=== PATIENT | male | born 1935 | race Caucasian/White ===

== ENCOUNTER 2023-08-17 09:35 | Emergency (ER) | payer MEDICARE, SELFPAY ==
[2023-08-17] VITALS (9 sets, daily range): BP systolic 178–184; BP diastolic 70–85; PULSE 50–64; RESP 13–22; TEMP 37; O2SAT 95–99; BMI 23.1
--- NOTE | 2023-08-17 09:49 | EKG_ITS ---
[address] [address] [address] [address] Test Date: 2023-08-17 Pat Name: Alden Sagastume Department: [facility] Room: Gender: Male [employer]er [employer]sembler: RIDGE : 1935 Requested By: Order Number: [id number] Reading MD: Sam Hylton MD Measurements Intervals [place] Rate: 55 P: 27 NH: 178 QRS: -2 QRSD: 76 T: 51 QT: 442 QTc: 422 Interpretive Statements Sinus bradycardia Electronically Signed On 08-18-2023 7:24:52 PDT by Sam Hylton MD
[2023-08-17] MEDS: ONDANSETRON 4 MG/2 ML INJ IV (10:45)
[2023-08-17 11:00] LABS: Add Manual Diff / Slide Review NO; Basophils Absolute Auto 0 /uL (0-100); Basophils Percent Auto 0.4 % (0-2); Eosinophils Absolute Auto 0 /uL (0-450); Eosinophils Percent Auto 0.5 % (2-4); Hemoglobin 12.6 g/dL (13.5-17.5); Lymphocytes Absolute Auto 600 /uL (1100-4500); Lymphocytes Percent Auto 10.1 % (25-40); Mean Corpuscular Hemoglobin 34.8 PG (26-34); Mean Corpuscular Volume 102.2 fL (80-100); Monocytes Absolute Auto 400 /uL (0-900); Monocytes Percent Auto 5.9 % (3-14); Neutrophils Absolute Auto 5300 /uL (1500-7000); Neutrophils Percent Auto 83.1 % (50-75); Platelet Count 242 X10^3/uL (150-400); Red Blood Cell Count 3.62 X10^6/uL (4.5-5.9); Red Cell Distribution Width 13.7 % (11.6-14.8); White Blood Cell Count 6.3 X10^3/uL (4.5-11.0)
[2023-08-17 11:09] LABS: Alanine Aminotransferase 12 IU/L (<50); Albumin 4.5 g/dL (3.5-5.0); Albumin Globulin Ratio 1.1 (1.0-2.8); Alkaline Phosphatase 60 U/L (38-126); Aspartate Aminotransferase 25 IU/L (17-59); Bilirubin Total 0.7 mg/dL (0.2-1.3); Blood Urea Nitrogen 13 mg/dL (9-20); Calcium 8.6 mg/dL (8.4-10.2); Carbon Dioxide 26 mmol/L (22-32); Chloride 105 mmol/L (98-107); Estimated Glomerular Filt Rate 53 mL/min (>60); Glucose 107 mg/dL (80-110); HEMOLYSIS < 15 (0-50); Lipase 105 U/L (23-300); Potassium 3.9 mmol/L (3.4-5.1); Sodium 139 mmol/L (137-145); Total Protein 8.5 g/dL (6.3-8.2)
--- NOTE | 2023-08-17 11:11 | ED.ABDPAIN ---
HPI - Abdominal Pain General Chief Complaint: Abdominal Pain Stated Complaint: vomiting, poss dehydration, sent by [facility] Time Seen by Provider: 08/17/23 11:10 Source: patient Mode of arrival: Ambulatory History of Present Illness HPI narrative: Patient is a 87-year-old male history of prostate cancer on Lupron every 3 months chronic kidney disease presenting today with nausea vomiting diarrhea. reports that he has had some abdominal cramping and vomiting off and on this morning he had uncontrolled vomiting unable to keep anything down. He also had 2 episodes of diarrhea. Nonbloody. He reports some abdominal discomfort but not significant pain. He reports he feels a little dizzy and lightheaded when he stands up. He feels like he is dehydrated. He denies any chest pain or palpitations. Related Data Previous Rx's Medication Instructions Recorded ondansetron 4 mg disintegrating 4 mg PO Q8H PRN nausea and 08/17/23 tablet vomiting #10 tabs Allergies Allergy/AdvReac Type Severity Reaction Status Date / Time Penicillins Allergy Unknown Verified 08/17/23 09:49 Patient History Medical History (Updated 08/17/23 @ 12:28 by Yamel Vazquez DO) Hypothyroidism (acquired) Macrocytic anemia Chronic kidney disease Hypertension Prostate cancer Social History Smoking Status: Never smoker Smoking Status: Never smoker alcohol intake frequency: 0-2 drinks per day Substance Use Type: does not use Exam Initial Vital Signs Initial Vital Signs: Vital Signs Pulse Rate 63 08/17/23 09:45 Blood Pressure 184/85 H 08/17/23 09:45 Pulse Oximetry 99 08/17/23 09:45 GENERAL: Alert week 87-year-old male and in no acute distress. HEENT: Head atraumatic,EOMI, pupils reactive, face symmetric, moist mucous membranes CARDIOVASCULAR: Regular rate and rhythm without murmurs, rubs or gallops. RESPIRATORY: Breath sounds equal bilaterally, no wheezes rales or rhonchi. ABDOMEN: Soft, nontender. No distention no scar Normoactive bowel sounds all 4 quadrants. No guarding or rebound. EXTREMITIES: Normal range of motion, no clubbing or edema. Neurovascularly intact NEUROLOGICAL: Alert and oriented x4.Normal gait and speech. SKIN: Warm, dry, no laceration, no petechiae, no rashes or lesions. Course Orders Ordered: ED Orders 08/17/23 10:35 Complete Blood Count AUTO DIFF Stat Comprehensive Metabolic Panel Stat Lipase Stat 08/17/23 11:12 CT abdomen pelvis w con Stat Discontinued Medications Sodium Chloride (Normal Saline 0.9%) 1,000 mls @ 1,000 mls/hr IV BOLUS ONE Stop: 08/17/23 12:09 Last Infusion: 08/17/23 12:43 Dose: Infused Documented By: Admin: 08/17/23 11:37 Dose: 1,000 mls/hr Documented By: MARK Ondansetron HCl (Ondansetron 4 Mg/2 Ml Inj) 4 mg IV NOW PRN PRN Reason: Nausea And Vomiting Last Admin: 08/17/23 10:45 Dose: 4 mg Documented By: VANCE Ondansetron HCl (Ondansetron 4 Mg Odt) 4 mg PO NOW PRN PRN Reason: Nausea And Vomiting Vital Signs Vital signs: Vital Signs - 8 hr 08/17/23 11:29 08/17/23 11:29 08/17/23 11:30 Pulse Rate 61 57 L Respiratory Rate 16 13 Blood Pressure 184/74 H Pulse Oximetry 98 98 08/17/23 11:31 08/17/23 11:31 08/17/23 12:00 Pulse Rate 57 L 55 L Respiratory Rate 17 22 Blood Pressure 178/75 H Pulse Oximetry 97 95 08/17/23 12:00 Pulse Rate Respiratory Rate Blood Pressure 178/70 H Pulse Oximetry MDM - Abdominal Pain Lab Data 08/17/23 10:35 08/17/23 10:35 Labs: Lab Results 08/17/23 Range/Units 10:35 WBC 6.3 (4.5-11.0) X10^3/uL RBC 3.62 L (4.5-5.9) X10^6/uL Hgb 12.6 L (13.5-17.5) g/dL Hct 37.0 L (41-53) % MCV 102.2 H (80-100) fL MCH 34.8 H (26-34) PG MCHC 34.0 (30-36) % RDW 13.7 (11.6-14.8) % Plt Count 242 (150-400) X10^3/uL Neut % (Auto) 83.1 H (50-75) % Lymph % (Auto) 10.1 L (25-40) % [place] % (Auto) 5.9 (3-14) % Eos % (Auto) 0.5 L (2-4) % Baso % (Auto) 0.4 (0-2) % Neut # (Auto) 5300 (8403-4786) /uL Lymph # (Auto) 600 L (5007-7075) /uL [place] # (Auto) 400 (0-900) /uL Eos # (Auto) 0 (0-450) /uL Baso # (Auto) 0 (0-100) /uL Sodium 139 (137-145) mmol/L Potassium 3.9 (3.4-5.1) mmol/L Chloride 105 (98-107) mmol/L Carbon Dioxide 26 (22-32) mmol/L BUN 13 (9-20) mg/dL Creatinine 1.30 H (0.66-1.25) mg/dL Estimated GFR 53 L (>60) mL/min BUN/Creatinine Ratio 10.0 (6-22) Glucose 107 (80-110) mg/dL Calcium 8.6 (8.4-10.2) mg/dL Total Bilirubin 0.7 (0.2-1.3) mg/dL AST 25 (17-59) IU/L ALT 12 (<50) IU/L Alkaline Phosphatase 60 (38-126) U/L Total Protein 8.5 H (6.3-8.2) g/dL Albumin 4.5 (3.5-5.0) g/dL Globulin 4.0 (1.7-4.1) g/dL Albumin/Globulin Ratio 1.1 (1.0-2.8) Lipase 105 (23-300) U/L Imaging Data CT scan - abdomen/pelvis: Radiologist's Impression: PROCEDURE: CT ABDOMEN PELVIS W CON INDICATIONS: nausea vomiting hx prostate cancer TECHNIQUE: After the administration of intravenous contrast, axial sections acquired from the lung bases to the pubic symphysis. Coronal and sagittal reformats were performed. For radiation dose reduction, the following was used: automated exposure control, adjustment of mA and/or kV according to patient size. COMPARISON: None. FINDINGS: Image quality: Diagnostic. Lower Chest: No significant findings. ABDOMEN: Liver: No solid mass. Gallbladder: No radiopaque gallstones or wall thickening. Biliary ducts: No biliary dilation. Pancreas: No ductal dilation. Spleen: Size is within normal limits. Adrenal Glands: No adrenal nodules. Kidneys and Ureters: No hydronephrosis. No solid mass. No complex renal cystic lesion which requires follow up. Stomach and Bowel: Colon is largely decompressed. Question mild diffuse wall edema. Question acute colitis. Extensive sigmoid diverticulosis and diffuse colonic diverticulosis without evidence of acute diverticulitis. No dilated loops. Peritoneum: No abnormal intraperitoneal fluid. No free air. Ventral Wall: No significant ventral hernia. Abdominal Nodes: No retroperitoneal or mesenteric adenopathy by size criteria. Vessels: Aorta and inferior vena cava are normal in size. PELVIS: Pelvic Organs: Mild enlargement of the prostate.. Bladder: Mild diffuse bladder wall thickening. Pelvic Nodes: No enlarged lymph nodes. Miscellaneous: No inguinal hernias are seen. Bones: No aggressive osseous abnormality. IMPRESSION: 1. Colon is decompressed. Question mild colitis. Consider infectious etiology. 2. Extensive diverticulosis without evidence of acute diverticulitis. 3. Mildly enlarged prostate. 4. Mild bladder wall thickening. Dictated by: Jason Spencer M.D. on 08/17/2023 at 11:47 Approved by: Jason Spencer M.D. on 08/17/2023 at 11:51 ECG Data Interpretation: Normal sinus rhythm rate 55 OK interval 178 QRS 76 QTC [address] changes MDM Narrative Medical decision making narrative: Patient 87-year-old male presenting today with nausea vomiting diarrhea. It has been going on for about a week. This morning he was unable to keep anything down due to excessive vomiting. He is some mild cramping but no significant pain. Not an acute abdomen on exam. Blood work has been reviewed he has a mild AMANDA with a creatinine of 1.3 but baseline is unknown. He has no leukocytosis electrolyte abnormality or other significant changes WBC 6.3 hemoglobin 12.6 hematocrit 37.[address] does show mild colitis Patient no longer feeling dizzy and lightheaded he is tolerating oral fluids. Feels ready and able to go home. He ambulated in the ED without assistance the restroom. Discussed oral rehydration techniques. He is given Zofran prescription. Discharge Plan Departure Patient Disposition: Home Clinical Impression: Gastroenteritis Instructions: DI for Viral Gastroenteritis -- Adult Activity Restrictions/Additional Instructions: *You have been diagnosed with gastroenteritis *What to do: Increase fluids as tolerated recommend Pedialyte or Gatorade *Continue to take medications as directed Zofran 4 mg every 8 hours needed for nausea or vomiting-->[facility] *Follow up with your primary care provider in 2-3 days or call [phone] *Return to ER if you should have persistent vomiting despite medication, worsening abdominal pain diarrhea, [or] any new, worsening or concerning symptoms Prescriptions: New ondansetron 4 mg tablet,disintegrating 4 mg PO Q8H PRN (Reason: nausea and vomiting) Qty: 10 0RF Referrals: Miscellaneous,Doctor, MD [Primary Care Provider] - Stand Alone Forms: Patient Portal/API
[2023-08-17] MEDS: SODIUM CHLORIDE 0.9% 1,000 ML 1000 ML IV (11:37)
--- NOTE | 2023-08-17 12:31 | PC.NURSE ---
ambulated to restroom without difficulty, no assistance needed.
== END 2023-08-17 12:45 | disposition home or self-care (01) ==
PROVIDERS: Emergency Provider Emergency Medicine
DX: K52.9 Noninfective gastroenteritis and colitis, unspecified (principal); R10.9 Unspecified abdominal pain
CPT/HCPCS: 36415; 74177; 80053; 83690; 85025; 93005; 96361; 96374; 99284; J2405; Q9967